=== PATIENT | male | born 1950 ===

== ENCOUNTER 2025-01-05 14:04 | Outpatient (CLI) | payer OTHER, SELFPAY ==
--- NOTE | ~2025-01-05 | XR_ITS ---
Lumbosacral Spine: AP and lateral views Clinical History: Pain Findings: The normal lordotic curve is maintained. No acute fracture or subluxation evident. Mild chr onic anterior wedging deformity of T12 present There is advanced degenerative disc narrowing at L5-S1 . There is severe facet arthropathy throughout most of the lumbar spine. The sacroiliac joints are no rmally outlined. Impression: Moderate degenerative spondylosis, as above. Mild chronic compression deformity of T12. Reviewed, dictated and finalized at location [facility] [employer] Impression: Moderate degenerative spondylosis, as above. Mild chronic compression deformity of T12.
--- NOTE | ~2025-01-05 | XR_ITS ---
Thoracic spine: Clinical Indication: Back pain AP and lateral views were performed. No fracture is seen. There is normal alignment of the vertebrae. There is moderate to advanced multi level degenerative disc narrowing of the thoracic spine. Paravertebral soft tissues appear normal. Impression: Multilevel moderate to advanced degenerative disc narrowing, especially at the mid to upper thoracic spine. Reviewed, dictated and finalized at [facility]. [employer] Impression: Multilevel moderate to advanced degenerative disc narrowing, especially at the mid to upper thoracic spine.
== END 2025-01-05 14:05 | disposition home or self-care (01) ==
PROVIDERS: PCP Internal Medicine; Visit Provider Internal Medicine
DX: M51.34 Other intervertebral disc degeneration, thoracic region (principal); M51.379 Other intervertebral disc degeneration, lumbosacral region without mention of lumbar back pain or lower extremity pain; M43.8X4 Other specified deforming dorsopathies, thoracic region
CPT/HCPCS: 72072; 72100